=== PATIENT | female | born 1945 | race Caucasian/White ===

== ENCOUNTER 2017-03-03 07:00 | Outpatient (CLI) | payer MEDICARE, OTHER | END 2017-03-03 07:01 | disposition critical access hospital (66) | LOC: EMS 07:00 | PROVIDERS: ATTEND Surgery | DX: M79.671 Pain in right foot (principal) | CPT/HCPCS: A0425; A0429 ==

== ENCOUNTER 2017-03-03 07:17 | Emergency (ER) | payer MEDICARE, OTHER ==
[2017-03-03 07:23] VITALS: BP 141/67
[2017-03-03] MEDS ORDERED: ACETAMINOPHEN 325 MG TABLET PO STA (07:34)
[2017-03-03] MEDS ORDERED: ACETAMINOPHEN 325 MG TABLET PO ONE (07:40)
--- NOTE | 2017-03-03 07:42 | ED Physician Documentation ---
History of Present Illness - Stated complaint Stated Complaint: ANKLE INJURY - Chief complaint Chief Complaint: Ext Problem - Additonal information Additional information: hx from pt stepped wrong and twisted R foot and ankle several days ago unable to bear weight since using sons walker did not fall, no head neck injury suffers from allergies but no recent fever cough NVD Review of Systems Constitutional: denies: Fever, Chills Throat: denies: Sore throat Cardiac: denies: Chest pain / pressure Respiratory: denies: Dyspnea, Cough GI: denies: Abdominal Pain, Nausea, Vomiting Musculoskeletal: reports: Extremity pain, Pain with weight bearing Endocrine: reports: Easy bruising / bleeding (xarelto) PD PAST MEDICAL HISTORY - Past Medical History Cardiovascular: Hypertension, Coronary artery disease, [place] Neuro: Other Endocrine/Autoimmune: Type 2 diabetes - Past Surgical History 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 - Present Medications Home Medications: Ambulatory Orders Medication Instructions Recorded Confirmed Albuterol [Ventolin Hfa] 2 puffs INH Q4H PRN #1 inhaler 08/21/15 03/03/17 Metoprolol Tartrate 100 mg PO BID 08/21/15 03/03/17 Primidone 50 mg PO TID 08/21/15 03/03/17 Triamterene/Hydrochlorothiazid 1 tab PO DAILY 08/21/15 03/03/17 [Triamterene-Hctz 75-50 mg Tab] metFORMIN [Glucophage] 1,000 mg PO BIDWM 08/21/15 03/03/17 Aspirin 81 mg PO DAILY 03/03/17 03/03/17 Chlorthalidone 25 mg PO DAILY 03/03/17 03/03/17 Diltiazem HCl [Diltiazem 24Hr ER] 240 mg PO DAILY 03/03/17 03/03/17 Hydroxyzine HCl 25 mg PO DAILY 03/03/17 03/03/17 Insulin Glargine [Lantus] 16 units SQ DAILY 03/03/17 03/03/17 Metoprolol Tartrate 50 mg PO DAILY 03/03/17 03/03/17 Omeprazole [PriLOSEC] 20 mg PO DAILY 03/03/17 03/03/17 Rivaroxaban [Xarelto] 20 mg PO DAILY 03/03/17 03/03/17 Rosuvastatin Calcium 20 mg PO BID 03/03/17 03/03/17 - Allergies Allergies/Adverse Reactions: Allergies Allergy/AdvReac Type Severity Reaction Status Date / Time No Known Drug Allergies Allergy Verified 08/21/15 21:49 - Social History Does the pt smoke?: No Smoking Status: Never smoker Does the pt drink ETOH?: No Does the pt have substance abuse?: No - Immunizations Immunizations are current?: Yes - POLST Patient has POLST: Yes PD ED PE NORMAL - Vitals Vital signs reviewed: Yes - Neck Neck: Supple, no meningeal sign - Cardiac Cardiac: RRR - Respiratory Respiratory: No respiratory distress, Clear bilaterally - Abdomen Abdomen: Non tender - Extremities Extremities: Other (swelling and TTP to mid foot, perez ankle mall and distal lower leg, MV intact, no gross deformity, no knee pain) - Neuro Neuro: Alert and oriented X 3, No motor deficit, No sensory deficit Results - Vitals Vitals: Vital Signs - 24 hr 03/03/17 07:20 Temperature 36.7 C Heart Rate 54 L Respiratory 18 Rate Blood Pressure 141/67 H O2 Saturation 96 Oxygen O2 Source Room air - Rads (name of study) tib fib Radiology: See rad report (neg) ankle Radiology: See rad report (neg) foot Radiology: See rad report (neg) PD MEDICAL DECISION MAKING - ED course ED course: son called and advised nurse cody that pt did not take her AM meds and that they all need to be given - I spoke to pt to confirm and she advises that as long as she gets her xrays and is dced home within the next 2 hr she can take the meds at home Departure - Departure Disposition: 01 Home, Self Care Clinical Impression: Ankle sprain Qualifiers: Encounter type: initial encounter Involved ligament of ankle: unspecified ligament Laterality: right Qualified Code(s): S93.401A - Sprain of unspecified ligament of right ankle, initial encounter Foot sprain Qualifiers: Encounter type: initial encounter Laterality: right Qualified Code(s): S93.601A - Unspecified sprain of right foot, initial encounter Condition: Good Instructions: ED Boot Aircast Walker, ED Sprain Foot, ED Sprain Ankle W X Ray Follow-Up: Anselmo Heard DO [Primary Care Provider] - Comments: Thankfully the xrays do not show any fractures or dislocation. Most likely the injury is in the soft tissues of the ankle and foot. Wear the boot we fit you for when ambulating and transferring. Using your sons walker for the next few weeks is a good idea too Please remove the boot when sitting and sleeping to allow the blood to circulation and decrease the risk of blood clots. Ice and tylenol as needed for the pain If not better in two weeks, please follow up with your PMD for a recheck and consideration of further imaging And please follow up with your PMD about your blood pressure - it was high today
--- NOTE | 2017-03-03 08:18 | XRAY Preliminary Report ---
Exam: XR Tib/Fib RT IMPRESSION: 1. No acute osseous abnormalities. [facility] SITE ID: [id number]
--- NOTE | 2017-03-03 08:19 | XRAY Preliminary Report ---
Exam: XR Ankle 3 View RT IMPRESSION: 1. No acute osseous abnormalities. [facility] SITE ID: [id number]
--- NOTE | 2017-03-03 08:20 | XRAY Report ---
EXAM: RIGHT TIBIA/FIBULA RADIOGRAPHY EXAM DATE: 03/03/2017 07:56 AM. CLINICAL HISTORY: Twisted pain cant walk. COMPARISON: None. TECHNIQUE: 2 views. FINDINGS: Bones: No acute fracture or bony lesion. Plantar and posterior calcaneal spurs. Degenerative spurring . Joints: Normal alignment of the right ankle and right knee. Degenerative changes of the right ankle a nd right knee. No dislocation. Soft Tissues: Soft tissue calcifications are seen. No radiopaque foreign bodies. Vascular calcificati ons. IMPRESSION: 1. No acute osseous abnormalities. [facility] Referring Provider Line: [phone] SITE ID: [id number]
--- NOTE | 2017-03-03 08:22 | XRAY Preliminary Report ---
Exam: XR Foot 3 View RT IMPRESSION: 1. No acute osseous abnormalities. [facility] SITE ID: [id number]
--- NOTE | 2017-03-03 08:22 | XRAY Report ---
EXAM: RIGHT ANKLE RADIOGRAPHY EXAM DATE: 03/03/2017 07:56 AM. CLINICAL HISTORY: Twisted, pain, cant walk. COMPARISON: None. TECHNIQUE: 3 views. FINDINGS: Bones: No acute fracture or bony lesion. Well-corticated calcifications by the lateral and medial mal leolus likely the result of prior trauma, degenerative changes or accessory ossicles. Posterior and p lantar calcaneal spurs. Joints: Ankle mortise is well maintained. No dislocation. Joint space narrowing. Soft Tissues: Soft tissue swelling. Soft tissue calcifications are seen along the plantar fascia. IMPRESSION: 1. No acute osseous abnormalities. [facility] Referring Provider Line: [phone] SITE ID: [id number]
--- NOTE | 2017-03-03 08:25 | XRAY Report ---
EXAM: RIGHT FOOT RADIOGRAPHY EXAM DATE: 03/03/2017 07:56 AM. CLINICAL HISTORY: Twisted pain cant walk. COMPARISON: 12/21/2014. TECHNIQUE: 3 views. FINDINGS: Bones: No acute fracture or bony lesion. Plantar and posterior calcaneal spurs. No bony erosions. Joints: Degenerative changes of the right first MTP joint and right midfoot. No dislocation. Soft Tissues: Soft tissue swelling. Vascular calcifications. Soft tissue calcifications along the sumit ntar fascia. IMPRESSION: 1. No acute osseous abnormalities. [facility] Referring Provider Line: [phone] SITE ID: [id number]
== END 2017-03-03 09:26 | disposition home or self-care (01) ==
LOC: EDUNIT# → ED 07:17
DX: S93.401A Sprain of unspecified ligament of right ankle, initial encounter (principal); S93.601A Unspecified sprain of right foot, initial encounter; X50.1XXA Overexertion from prolonged static or awkward postures, initial encounter; I10 Essential (primary) hypertension; E11.9 Type 2 diabetes mellitus without complications; Z79.4 Long term (current) use of insulin; I25.10 Atherosclerotic heart disease of native coronary artery without angina pectoris; Z79.01 Long term (current) use of anticoagulants; Z79.82 Long term (current) use of aspirin
CPT/HCPCS: 73590; 73610; 73630; 99283; A9270

== ENCOUNTER 2021-03-12 04:24 | Outpatient (CLI) | payer MEDICARE | END 2021-03-12 04:25 | disposition critical access hospital (66) | LOC: EMS 04:24 | DX: M79.672 Pain in left foot (principal) | CPT/HCPCS: A0425; A0429 ==

== ENCOUNTER 2021-03-12 04:44 | Emergency (ER) | payer MEDICARE, OTHER ==
[2021-03-12] MEDS ORDERED: ACETAMINOPHEN 325 MG TABLET PO STA (04:56)
--- NOTE | 2021-03-12 04:57 | ED Physician Documentation ---
PD HPI LOWER EXT INJURY - Stated complaint Stated Complaint: L FOOT PX - History obtained from History obtained from: Patient, EMS - History of Present Illness PD HPI LOW EXT INJURY LOCATION: Left, Ankle, Foot Type of injury: Twist (she says it got wrapped up in blanket as she was getting out of bed yesterday morning an dfelt abrupt pain in foot/ankle. Use boot orthosis that she had from foot fracture 6-8 months ago to support it.) Where injury occurred: Home Timing - onset: Yesterday Timing - duration: Days (1) Timing - details: Abrupt onset, Still present Worsened by: Moving, Palpating Associated symptoms: Swelling (mid to proximal foot and anterolateral ankle.). 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 - Present Medications Home Medications: Ambulatory Orders Medication Instructions Recorded Confirmed Albuterol [Ventolin Hfa] 2 puffs INH Q4H PRN #1 inhaler 08/21/15 03/12/21 Metoprolol Tartrate 100 mg PO BID 08/21/15 03/12/21 Primidone 50 mg PO TID 08/21/15 03/12/21 Triamterene/Hydrochlorothiazid 1 tab PO DAILY 08/21/15 03/12/21 [Triamterene-Hctz 75-50 mg Tab] metFORMIN [Glucophage] 1,000 mg PO BIDWM 08/21/15 03/12/21 Aspirin 81 mg PO DAILY 03/03/17 03/12/21 Chlorthalidone 25 mg PO DAILY 03/03/17 03/12/21 Diltiazem HCl [Diltiazem 24Hr ER] 240 mg PO DAILY 03/03/17 03/12/21 Insulin Glargine [Lantus] 16 units SQ DAILY 03/03/17 03/12/21 Metoprolol Tartrate 50 mg PO DAILY 03/03/17 03/12/21 Omeprazole [PriLOSEC] 20 mg PO DAILY 03/03/17 03/12/21 Rivaroxaban [Xarelto] 20 mg PO DAILY 03/03/17 03/12/21 Rosuvastatin Calcium 20 mg PO BID 03/03/17 03/12/21 hydrOXYzine HCL [Hydroxyzine HCl] 25 mg PO DAILY 03/03/17 03/12/21 - Allergies Allergies/Adverse Reactions: Allergies Allergy/AdvReac Type Severity Reaction Status Date / Time No Known Drug Allergies Allergy Verified 03/12/21 04:57 - Social History Does the pt smoke?: No Smoking Status: Never smoker Does the pt drink ETOH?: No Does the pt have substance abuse?: No - Immunizations Immunizations are current?: Yes - POLST Patient has POLST: Yes PD ED PE NORMAL - Vitals Vital signs reviewed: Yes - General General: Alert and oriented X 3, No acute distress, Well developed/nourished - Derm Derm: Normal color, Warm and dry - Extremities Extremities: Other (left foot with tenderness dorsal mid foot and anterolateral and dorsal proximal foot. Not tender at malleoli per se. ) - Neuro Neuro: Alert and oriented X 3, No motor deficit, No sensory deficit Results - Vitals Vitals: Vital Signs - 24 hr 03/12/21 04:52 Temperature 37.3 C Heart Rate 64 Respiratory 20 Rate Blood Pressure 154/74 H O2 Saturation 98 Oxygen O2 Source Room air - Rads (name of study) left foot Radiology: Prelim report reviewed, See rad report PD MEDICAL DECISION MAKING - ED course Complexity details: reviewed old records (ER records show her prior foot/ankle injury was actually 4 years ago. No fracture at that time. ), considered differential (left foot twisting injury; will get xray to eval for fracture vs sprain. ), d/w patient Departure - Departure Disposition: 01 Home, Self Care Clinical Impression: Sprain of left foot Qualifiers: Encounter type: initial encounter Qualified Code(s): S93.602A - Unspecified sprain of left foot, initial encounter Condition: Stable Record reviewed to determine appropriate education?: Yes Instructions: ED Sprain Foot Comments: I don't see any fractures on xray. Use the boot orthosis as needed for comfort while the sprain is healing, presume few days to a week or so. Tylenol every 4 hours if needed for pains. Follow up if not improved over the next week.
[2021-03-12 05:38] VITALS: BP 143/67
--- NOTE | 2021-03-12 08:30 | XRAY Report ---
PROCEDURE: Foot 3 View LT INDICATIONS: Twisted foot with pain mid to proximal foot TECHNIQUE: 3 views of the foot were acquired. COMPARISON: None. FINDINGS: Bones: No fracture or dislocation. No suspicious bony lesions. Soft tissues: No tibiotalar joint effusion. Achilles tendon appears normal. IMPRESSION: No acute finding. Reviewed by: Bertin Kimball MD on 03/12/2021 8:28 AM PDT Approved by: Bertin Kimball MD on 03/12/2021 8:28 AM PDT Station ID: [id number]
== END 2021-03-12 06:10 | disposition home or self-care (01) ==
LOC: EDUNIT# → ED 04:44 → SUPCPDRO 04:44 → ED 06:10
DX: S93.602A Unspecified sprain of left foot, initial encounter (principal); X50.1XXA Overexertion from prolonged static or awkward postures, initial encounter; Y93.89 Activity, other specified; Y92.003 Bedroom of unspecified non-institutional (private) residence as the place of occurrence of the external cause; I10 Essential (primary) hypertension; I25.10 Atherosclerotic heart disease of native coronary artery without angina pectoris; Z79.01 Long term (current) use of anticoagulants; E11.9 Type 2 diabetes mellitus without complications; Z79.4 Long term (current) use of insulin
CPT/HCPCS: 73630; 99282; 99283; A9270

== ENCOUNTER 2022-06-09 13:56 | Outpatient (CLI) | payer MEDICARE, OTHER | END 2022-06-09 13:57 | disposition short-term general hospital (02) | LOC: EMS 13:56 | DX: M79.641 Pain in right hand (principal); W22.8XXA Striking against or struck by other objects, initial encounter | CPT/HCPCS: A0425; A0429 ==

== ENCOUNTER 2022-07-19 10:15 | Emergency (ER) | payer MEDICARE, OTHER ==
--- NOTE | 2022-07-19 10:27 | ED Physician Documentation ---
PD HPI HEAD INJURY - Stated complaint Stated Complaint: GLF - History obtained from History obtained from: Patient, EMS - History of Present Illness Mechanism of head injury: Fell (She states she had been having swelling of her feet with some pain in her legs and skin sores. She states she tripped on the carpeting or such and fell forward striking her left eyebrow. No loss of consciousness. General weakness and unable to get up.) Where head injury occurred: Home Timing - onset: How many hours ago (1), Today Location of injury: Left, Front Associated symptoms: Neck pain. No: LOC, AMS, Nausea / vomiting, Paresthesias Symptoms worsen with: Palpation Contributing factors: Anticoagulated. No: Intoxicated Similar symptoms before: No diagnosis (general weakness due to edema/ CHF/ deconditioning.), Other (Her granddaughter states she has had several falls over the last few weeks due to general weakness and troubles with her legs being swollen and fungally from the weight. No focal weakness.) Recently seen: Emergency Dept (Seen last night at [facility] for leg sores and swelling. Was not lightheaded at that time.) Review of Systems Constitutional: denies: Fever Nose: denies: Rhinorrhea / runny nose, Congestion Throat: denies: Sore throat Respiratory: denies: Cough Skin: reports: Laceration (s) (left eyebrow) Musculoskeletal: reports: Neck pain, Back pain (chronic) Neurologic: reports: Generalized weakness (with difficulty walking and has had several falls over the past few weeks.). 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 - Present Medications Home Medications: Ambulatory Orders Medication Instructions Recorded Confirmed Primidone 50 mg PO BID 08/21/15 07/19/22 metFORMIN [Glucophage] 1,000 mg PO BIDWM 08/21/15 07/19/22 Aspirin 81 mg PO DAILY 03/03/17 07/19/22 Insulin Glargine [Lantus] 15 units SQ DAILY 03/03/17 07/19/22 Omeprazole [PriLOSEC] 20 mg PO BID 03/03/17 07/19/22 Rivaroxaban [Xarelto] 20 mg PO DAILY 03/03/17 07/19/22 Rosuvastatin Calcium 20 mg PO BID 03/03/17 07/19/22 Acetaminophen [Acetaminophen Extra 500 mg PO Q6HR PRN 07/19/22 07/19/22 Strength] B Complex W-C No.20/Folic Acid 1 mg PO DAILY 07/19/22 07/19/22 [Wescaps Capsule] Benzonatate [Tessalon] 100 mg PO TID PRN 07/19/22 07/19/22 Digoxin [Lanoxin] 125 mcg PO DAILY 07/19/22 07/19/22 Levocetirizine Dihydrochloride 5 mg PO BID 07/19/22 07/19/22 Losartan Potassium 25 mg PO DAILY 07/19/22 07/19/22 Metoprolol Succinate [Toprol Xl] 50 mg PO DAILY PM 07/19/22 07/19/22 Metoprolol Succinate [Toprol Xl] 125 mg PO DAILY 07/19/22 07/19/22 Multivit/Folic Acid/Vit K1 1 each PO DAILY 07/19/22 07/19/22 [Women's 50 Plus Advanced Mv Tb] Spironolactone [Aldactone] 25 mg PO DAILY 07/19/22 07/19/22 Torsemide 20 mg PO BID 07/19/22 07/19/22 diphenhydrAMINE HCL [Allergy] 25 mg PO PRN PRN 07/19/22 07/19/22 hydrOXYzine HCL [Hydroxyzine HCl] 25 mg PO BID 07/19/22 07/19/22 - Allergies Allergies/Adverse Reactions: Allergies Allergy/AdvReac Type Severity Reaction Status Date / Time No Known Drug Allergies Allergy Verified 07/19/22 10:34 - Living Situation Living Situation: reports: With family Living Arrangement: reports: At home - Social History Does the pt smoke?: No Smoking Status: Never smoker Does the pt drink ETOH?: No Does the pt have substance abuse?: No - Immunizations Immunizations are current?: Yes - POLST Patient has POLST: Yes PD ED PE NORMAL - Vitals Vital signs reviewed: Yes - General General: Alert and oriented X 3, No acute distress, Well developed/nourished - HEENT HEENT: PERRL, EOMI, Other (left lateral eyebrow area with laceration to fatty tissue, 2 cm length, without FB but has some ongoing oozing/mild bleeding. ) - Neck Neck: Supple, no meningeal sign, No adenopathy, Other (some tender left lateral neck. No midline tender. ) - Cardiac Cardiac: No: RRR (irregular but good rate. ) - Respiratory Respiratory: Clear bilaterally, Other (no chestwall tenderness. ) - Abdomen Abdomen: Soft, Non tender, Other (elevated BMI. ) - Derm Derm: Normal color, Warm and dry - Extremities Extremities: Other (2+ edema in both lower legs. Socks on and I did not inspect skin as had been done yesterday in ER. ) - Neuro Neuro: Alert and oriented X 3, No motor deficit, No sensory deficit, Normal speech Eye Opening: Spontaneous Motor: Obeys Commands Verbal: Oriented GCS Score: 15 Results - Vitals Vitals: Vital Signs - 24 hr 07/19/22 07/19/22 07/19/22 10:27 12:56 13:00 Temperature 36.1 C L 36.4 C L Heart Rate 89 90 90 Respiratory 16 16 16 Rate Blood Pressure 148/79 H 165/89 H 180/90 H O2 Saturation 97 97 99 07/19/22 07/19/22 07/19/22 13:30 14:16 14:39 Temperature 36.8 C 36.5 C Heart Rate 88 96 92 Respiratory 16 18 20 Rate Blood Pressure 170/90 H 152/79 H 160/73 H O2 Saturation 99 94 100 07/19/22 07/19/22 07/19/22 15:41 16:00 16:36 Temperature 36.8 C Heart Rate 69 83 88 Respiratory 18 18 20 Rate Blood Pressure 168/67 H 175/64 H O2 Saturation 100 100 100 Oxygen O2 Source Room air - Labs Labs: Laboratory Tests 07/19/22 07/19/22 07/19/22 10:28 10:28 10:28 WBC 5.5 RBC 3.87 L Hgb 9.4 L Hct 31.6 L MCV 81.7 MCH 24.3 L MCHC 29.7 L RDW 19.4 H Plt Count 213 MPV 9.8 Neut # (Auto) 4.0 Lymph # (Auto) 0.8 L Assumption # (Auto) 0.7 Eos # (Auto) 0.1 Baso # (Auto) 0.0 Absolute Nucleated RBC 0.00 Nucleated RBC % 0.0 PT 14.2 H INR 1.3 H Sodium 139 Potassium 3.8 Chloride 102 Carbon Dioxide 23 Anion Gap 14.0 H BUN 26 H Creatinine 1.1 H Estimated GFR (MDRD) 48 L Glucose 194 H Calcium 8.1 L Magnesium 1.3 L Total Bilirubin 0.5 AST 19 ALT 15 Alkaline Phosphatase 107 Total Protein 7.1 Albumin 2.9 L Globulin 4.2 Albumin/Globulin Ratio 0.7 L Lipase 97 H SARS-CoV-2 (PCR) 07/19/22 14:10 WBC RBC Hgb Hct MCV MCH MCHC RDW Plt Count MPV Neut # (Auto) Lymph # (Auto) Assumption # (Auto) Eos # (Auto) Baso # (Auto) Absolute Nucleated RBC Nucleated RBC % PT INR Sodium Potassium Chloride Carbon Dioxide Anion Gap BUN Creatinine Estimated GFR (MDRD) Glucose Calcium Magnesium Total Bilirubin AST ALT Alkaline Phosphatase Total Protein Albumin Globulin Albumin/Globulin Ratio Lipase SARS-CoV-2 (PCR) NOT DETECTED - Rads (name of study) head CT Radiology: Prelim report reviewed (no ICH nor acute findings.), See rad report cervical CT Radiology: Prelim report reviewed (no fractures. ), See rad report Procedures - Laceration (location) left eyebrow Length in cm: 2 Wound type: Linear, Into subcut fat, Clean Neurovascular status: Sensory intact Anesthesia: LET Wound preparation: Irrigated copiously NS, Wound explored, To the base Skin layer closure: Nylon, Running, Size #-0 - enter number (5), Sutures - enter # (7) PD MEDICAL DECISION MAKING - ED course Complexity details: considered differential (General weakness with a mechanical fall from tripping "over her own feet". Laceration to the forehead. No concussive symptoms. On a DOAC so CT scan ordered as well as cervical spine. No bleeding.), d/w patient ED course: The patient's granddaughter is here with her. She is a meter tester at [employer] and states she had contacted one of the care facilities there that did have beds available. However needs a screening assessment with a COVID swab and basic labs as well as physical therapy assessment in order to be placed there. We do not have physical therapy available here today. We do not have social work anymore today as well this afternoon. I am encouraging the patient and her granddaughter to discharge home and work on placement over the next several days from there. Her granddaughter feels the patient is unsafe due to inability to stand on her own at this point. I will discuss with our charge nurse. I did inform the patient and her granddaughter that we have multiple boarding patients here and this can be a laborious process trying to get this done through the ER. The patient could benefit from physical therapy and general strengthening and improvement on her edema to improve ambulation and risk of falling. However without physical therapy or social work available at this time, we are unable to facilitate advancement towards detention. Rather the granddaughter will take the patient home and try to facilitate rehab or advanced care through their primary care. Departure - Departure Disposition: 01 Home, Self Care Clinical Impression: Anticoagulant long-term use, Bilateral edema of lower extremity, CHF (congestive heart failure), Atrial fibrillation, chronic, Generalized weakness, Physical deconditioning Fall from slip, trip, or stumble Qualifiers: Encounter type: initial encounter Qualified Code(s): W01.0XXA - Fall on same level from slipping, tripping and stumbling without subsequent striking against object, initial encounter Eyebrow laceration Qualifiers: Encounter type: initial encounter Laterality: left Qualified Code(s): S01.112A - Laceration without foreign body of left eyelid and periocular area, initial encounter Condition: Stable Record reviewed to determine appropriate education?: Yes Comments: It is okay to wash and shower. Clean off the wound twice a day with soap and water, or peroxide and water. Apply some antibiotic ointment to it to keep it moist. Also to watch for signs of infection such as purulence, redness or increasing pain. Return to your primary care or the ER at the specified time for suture removal. Suture removal 8-10 days We did not have social work or physical therapy available this weekend afternoon nor tomorrow. As such we are not able to facilitate any advancement toward trying rehab/detention. You can work towards that through your primary care in the next several days. Continue your current usual medicines. Use your walker at home to help with balance and ambulation. Continue with your home health aides. Discharge Date/Time: 07/19/22 16:38
[2022-07-19 10:35] LABS: BASOPHILS % (AUTO) 0.4 %; EOSINOPHILS # (AUTO) 0.1 10^3/uL (0.0-0.7); EOSINOPHILS % (AUTO) 1.1 %; HCT - HEMATOCRIT 31.6 % (37.0-47.0); HGB - HEMOGLOBIN 9.4 g/dL (12.0-16.0); LYMPHOCYTES # (AUTO) 0.8 10^3/uL (1.5-3.5); LYMPHOCYTES % (AUTO) 14.3 %; MEAN CORPUSCULAR HEMOGLOBIN 24.3 pg (27.0-31.0); MEAN CORPUSCULAR HGB CONC 29.7 g/dL (32.0-36.0); MEAN CORPUSCULAR VOLUME 81.7 fL (81.0-99.0); MEAN PLATELET VOLUME 9.8 fL (7.9-10.8); MONOCYTES # (AUTO) 0.7 10^3/uL (0.0-1.0); NEUTROPHILS % (AUTO) 71.7 %; PLT - PLATELET COUNT 213 10^3/uL (130-450); RED BLOOD COUNT 3.87 10^6/uL (4.20-5.40); RED CELL DISTRIBUTION WIDTH 19.4 % (12.0-15.0); WHITE BLOOD COUNT 5.5 x10^3/uL (4.8-10.8)
[2022-07-19 10:41] LABS: INR 1.3 (0.8-1.2); PT - PROTHROMBIN TIME 14.2 secs (9.9-12.6)
[2022-07-19 10:48] LABS: ALBUMIN 2.9 g/dL (3.2-5.5); ALBUMIN/GLOBULIN RATIO 0.7 (1.0-2.2); BILIRUBIN,TOTAL 0.5 mg/dL (0.2-1.0); CALCIUM 8.1 mg/dL (8.5-10.3); CREATININE 1.1 mg/dL (0.4-1.0); MAGNESIUM 1.3 mg/dL (1.7-2.8); POTASSIUM 3.8 mmol/L (3.5-5.0); TOTAL PROTEIN 7.1 g/dL (6.7-8.2)
--- NOTE | 2022-07-19 10:54 | CT Report ---
PROCEDURE: HEAD WO INDICATIONS: fall, struck head; on DOAC TECHNIQUE: Noncontrast 4.5 mm thick angled axial sections acquired from the foramen magnum to the vertex. For r adiation dose reduction, the following was used: automated exposure control, adjustment of mA and/or kV according to patient size. COMPARISON: Correlation is made with the accompanying cervical spine CT 07/19/2022. FINDINGS: Image quality: There is streak artifact seen through the skull base. CSF spaces: Basal cisterns are patent. No extra-axial fluid collections. Ventricles are normal in size and shape. Brain: No midline shift. No intracranial masses or hemorrhage. Alejandro-white matter interface is norm al. Skull and face: There is a mild left lateral forehead/periorbital soft tissue hematoma seen. No eder onal fracture can be seen. Calvarium and visualized facial bones are intact, without suspicious lesio ns. Hyperostosis frontalis is incidentally noted, which is not frankly abnormal for a female patient of this age. Sinuses: Visualized sinuses and mastoids are clear. IMPRESSION: Left forehead/periorbital soft tissue scalp hematoma, without an associated fracture. No intracranial hemorrhage is seen. No significant intracranial abnormality is seen. Reviewed by: Andre Hines MD on 07/19/2022 9:53 AM [facility] Approved by: Andre Hines MD on 07/19/2022 9:53 AM [facility] Station ID: [id number]
--- NOTE | 2022-07-19 10:56 | CT Report ---
PROCEDURE: CERVICAL SPINE WO INDICATIONS: fall, struck head; has neck pain TECHNIQUE: Noncontrast 3 mm thick sections acquired from the skull base to the T5 level. Sagittal and coronal r eformats were then constructed. For radiation dose reduction, the following was used: automated exp osure control, adjustment of mA and/or kV according to patient size. COMPARISON: Correlation is made with the accompanying head CT, 07/19/2022. FINDINGS: Image quality: Excellent. Bones: No fractures or dislocations. Visualized superior ribs are intact. Focal degenerative change can also be seen involving the C1-C2 interface anteriorly. There is moderat e to severe disc space narrowing seen at C6-C7 and C7-T1. Milder degenerative changes are seen elsewh ere, including involving the visualized upper thoracic spine. Soft tissues: Prevertebral soft tissues are normal in thickness. No paravertebral hematomas. No ap ical pneumothoraces. Calcification can be seen involving the right thyroid. Atherosclerotic calcific ation is seen. IMPRESSION: Negative for acute fracture. Degenerative changes are seen, which are worst at the C6-C7 level. Reviewed by: Andre Hines MD on 07/19/2022 9:55 AM [place] Approved by: Andre Hines MD on 07/19/2022 9:55 AM [facility] Station ID: [id number]
[2022-07-19] MEDS ORDERED: KETOROLAC 30 MG/ML VIAL IM STA (11:54)
[2022-07-19] MEDS ORDERED: ACETAMINOPHEN 325 MG TABLET PO STA (11:54)
[2022-07-19] MEDS ORDERED: LIDOCAINE-EPINEPH-TETRACAINE 3 ML SYRINGE TOP STA (11:54)
[2022-07-19 16:27] VITALS: BP 175/64
== END 2022-07-19 16:38 | disposition home or self-care (01) ==
LOC: EDUNIT# → ED 10:15
DX: S01.112A Laceration without foreign body of left eyelid and periocular area, initial encounter (principal); W01.0XXA Fall on same level from slipping, tripping and stumbling without subsequent striking against object, initial encounter; I48.91 Unspecified atrial fibrillation; Z79.01 Long term (current) use of anticoagulants; E11.9 Type 2 diabetes mellitus without complications; Z79.4 Long term (current) use of insulin; I50.9 Heart failure, unspecified; Z20.822 Contact with and (suspected) exposure to COVID-19
CPT/HCPCS: 12011; 36415; 70450; 72125; 80053; 83690; 83735; 85025; 85610; 87635; 96372; 99284; A9270

== ENCOUNTER → 2022-07-19 | Outpatient (CLI) | payer MEDICARE, OTHER | END | disposition critical access hospital (66) | LOC: EMS 09:51 | DX: S01.112A Laceration without foreign body of left eyelid and periocular area, initial encounter (principal); W01.0XXA Fall on same level from slipping, tripping and stumbling without subsequent striking against object, initial encounter; Y92.008 Other place in unspecified non-institutional (private) residence as the place of occurrence of the external cause | CPT/HCPCS: A0425; A0429 ==

== ENCOUNTER → 2022-07-19 | Outpatient (CLI) | payer MEDICARE, OTHER | END | disposition home or self-care (01) | LOC: EMS 16:43 | PROVIDERS: ATTEND Emergency Medicine | DX: S01.112A Laceration without foreign body of left eyelid and periocular area, initial encounter (principal); W01.0XXA Fall on same level from slipping, tripping and stumbling without subsequent striking against object, initial encounter; Y92.009 Unspecified place in unspecified non-institutional (private) residence as the place of occurrence of the external cause | CPT/HCPCS: A0425; A0428 ==

== ENCOUNTER → 2022-07-19 | Outpatient (CLI) | payer MEDICARE, OTHER | END | disposition short-term general hospital (02) | LOC: EMS 01:52 | DX: M79.672 Pain in left foot (principal); M79.671 Pain in right foot; M25.562 Pain in left knee; M25.561 Pain in right knee; M54.2 Cervicalgia | CPT/HCPCS: A0425; A0429; A0888 ==

== ENCOUNTER 2022-09-13 07:01 | Outpatient (CLI) | payer MEDICARE, OTHER | END 2022-09-13 07:02 | disposition EMS.NT | LOC: EMS 07:01 | DX: Z03.89 Encounter for observation for other suspected diseases and conditions ruled out (principal); Z74.1 Need for assistance with personal care; Z60.2 Problems related to living alone ==

== ENCOUNTER 2022-09-13 22:56 | Outpatient (CLI) | payer MEDICARE, OTHER | END 2022-09-13 22:57 | disposition short-term general hospital (02) | LOC: EMS 22:56 | DX: R53.1 Weakness (principal); M25.512 Pain in left shoulder | CPT/HCPCS: A0425; A0429; A0888 ==

== ENCOUNTER 2022-09-16 05:19 | Outpatient (CLI) | payer MEDICARE, OTHER | END 2022-09-16 05:20 | disposition EMS.NT | LOC: EMS 05:19 | DX: Z03.89 Encounter for observation for other suspected diseases and conditions ruled out (principal) ==

== ENCOUNTER 2022-09-22 16:04 | Outpatient (CLI) | payer MEDICARE, OTHER | END 2022-09-22 16:05 | disposition EMS.NT | LOC: EMS 16:04 | DX: Z03.89 Encounter for observation for other suspected diseases and conditions ruled out (principal) ==

== ENCOUNTER 2022-09-30 20:44 | Outpatient (CLI) | payer MEDICARE, OTHER | END 2022-09-30 20:45 | disposition left against medical advice (07) | LOC: EMS 20:44 | DX: Z03.89 Encounter for observation for other suspected diseases and conditions ruled out (principal) ==

== ENCOUNTER 2022-10-01 01:35 | Outpatient (CLI) | payer MEDICARE, OTHER | END 2022-10-01 01:36 | disposition EMS.NT | LOC: EMS 01:35 | DX: Z03.89 Encounter for observation for other suspected diseases and conditions ruled out (principal) ==

== ENCOUNTER → 2022-10-17 | Outpatient (CLI) | payer MEDICARE, OTHER | END | disposition short-term general hospital (02) | LOC: EMS 16:13 | DX: M79.672 Pain in left foot (principal) | CPT/HCPCS: A0425; A0429; A0888 ==